=== PATIENT | female | born 1945 | race Caucasian/White ===

== ENCOUNTER → 2017-02-23 | Outpatient (CLI) | payer OTHER, BC ==
[~2017-02-23] MED LIST: ACCUNEB SO1.25 MG/1; ACETAMINOPHEN325 M1 PO; ACTOS 30 MG TAB30 MG PO; ADULT LOW DOSE81 MG PO; APAP500 PO; ARANESP25 MCG/0.4 SUBQ; ASPIRIN325 PO; ATIVAN0.5 MG PO; AZITHROMYCIN 2250 MG; BENADRYL25 MG PO; BISACODYL SUPP10 MG RECTAL; CEFDINIR300 MG PO; COLACE100 MG PO; DAKIN'S473 M1 TOP; DIABETA 5MG TABL5 MG PO; DIGOXIN125 MCG PO; EPOGEN20000 UNI2 SUBQ; FERRELCIT IV; FLUSH FLUSH; GLYBURIDE 2.52.5 M1 PO; HECTOROL2 MCG/1 ML IV; HEPARIN SO5000 UNIT2 SUBQ; HUMALOG100 UNIT/1 SUBQ; IBUPROFEN 400400 M1 PO; LANTUS100 UNIT/M SUBQ; LEVEMIR SUBQ; MIDODRINE HCL 55 M1 PO; MIRALAX17 GM PO; NEPHROCAPS SOFT1 CAP; NEPHROCAPS SOFT1 CAP PO; NORCO 5-325 TA1 EACH PO; NOVASOURCE REN237 ML PO; NOVOLOG100 UNIT/1 SUBQ; PANTOPRAZOLE SO40 M1 PO; PERCOCET PO; PHENERGAN 25 MG25 M1 PO; PHOSLO667 MG PO; PLAVIX 75 MG TA75 M1 PO; PRAVACHOL40 MG PO; PRAVACHOL80 MG PO; PREPARATION H C51 G1 RC; PREPARATION H26 GM RECTAL; PRILOSEC 20 MG20 MG PO; REGLAN 5 MG TAB5 M1 PO; REGLAN 5 MG TAB5 MG PO; REGRANEX; RENAL MULTIVIT1 EACH PO; RENAL PO; RENVELA800 MG PO; SENNA PO; SENSIPAR 30 MG30 M1 PO; TUMS PO; VAN500AD IV; VENOFER100 MG/51 IVPB; ZEMPLAR2 MCG/1 ML IV; ZINC PO; ZOCOR 20 MG TAB20 M1 PO; ZOFRAN2 MG/1 ML IV; ZOSYN 2.25 GR2.25 GM IV
== END ==
LOC: HYPER 06:56
DX: S90.421D Blister (nonthermal), right great toe, subsequent encounter (principal); S81.811D Laceration without foreign body, right lower leg, subsequent encounter; E11.40 Type 2 diabetes mellitus with diabetic neuropathy, unspecified; E11.51 Type 2 diabetes mellitus with diabetic peripheral angiopathy without gangrene; E11.22 Type 2 diabetes mellitus with diabetic chronic kidney disease; I12.0 Hypertensive chronic kidney disease with stage 5 chronic kidney disease or end stage renal disease; N18.6 End stage renal disease; G47.30 Sleep apnea, unspecified; E78.5 Hyperlipidemia, unspecified; K21.9 Gastro-esophageal reflux disease without esophagitis; E11.36 Type 2 diabetes mellitus with diabetic cataract; E21.3 Hyperparathyroidism, unspecified; M10.9 Gout, unspecified; E11.69 Type 2 diabetes mellitus with other specified complication; M86.9 Osteomyelitis, unspecified; I48.91 Unspecified atrial fibrillation; H91.90 Unspecified hearing loss, unspecified ear; F32.9 Major depressive disorder, single episode, unspecified; F41.9 Anxiety disorder, unspecified; Z99.2 Dependence on renal dialysis; Z89.519 Acquired absence of unspecified leg below knee; Z86.73 Personal history of transient ischemic attack (TIA), and cerebral infarction without residual deficits; X58.XXXD Exposure to other specified factors, subsequent encounter

== ENCOUNTER 2017-06-30 14:26 | Inpatient (IN) | payer OTHER, BC ==
[~2017-06-30] VITALS: Ht 157.5 cm; Wt 98.9 kg
--- NOTE | ~2017-06-30 | HC ---
[facility] [place] [address] CONSULTATION Name: LAURE CARLIN Kevin Room #: 215-P [place] IN M.R.#: [id number] Admission: 06/30/17 Attend Phys: Bhavesh Fields MD Discharge: 07/01/17 Date of : 43 Report #: [id number] THIS REPORT FOR: //name// CC: Bhavesh Fields [facility] [address] Aguilar DATE OF SERVICE: 07/01/2017 REASON FOR CONSULTATION: End-stage renal disease with volume overload. HISTORY OF PRESENT ILLNESS: This is a 72-year-old female who has end-stage renal disease and has been a chronic hemodialysis patient for many years. She normally dialyzes on a Qpnfpx-Eiclkoelz-Esypjw basis at the [facility] in [place], [place]. She states she received dialysis at her usual times this past week. She has had dyspnea that has been getting worse over that same time along with some cough. She has some mild sputum production. She is unaware of fevers, chills, or sweats. She thinks she might have had a "cold." With her dialysis, she has been getting down to her target weight as prescribed. Yesterday after dialysis, she was still having worsening respiratory symptoms, so she went to the [facility] and then was transferred here. Chest x-ray is reviewed and has shown some changes consistent with some mild pulmonary edema/diffuse infiltrates. She generally does not have any edema. Again, she states she is getting about 2 liters of ultrafiltration and getting down to her target weight. This is complicated somewhat by chronic hypotension. She is chronically on midodrine 3 times a day to keep her blood pressure up. The combination of the hypotension and need for volume removal are obviously leaving on a complicated problem as far as getting as much fluid off as needed. PAST MEDICAL HISTORY: Longstanding diabetes mellitus, eventually leading to end-stage renal disease. She has been on dialysis for many years. She dialyzes using left upper arm access. It has been working fairly well. She has longstanding diabetes mellitus. She has peripheral vascular disease. 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 She has previous diskitis in her back. She has had previous complication of diabetes beyond the nephropathy including retinopathy, peripheral neuropathy. She had a remote CVA in 1998. She has previous appendectomy. She has anemia of end-stage renal disease. MEDICATIONS: On admission include midodrine 5 mg t.i.d.; glyburide 2.5 mg, I believe it is b.i.d.; Actos 15 mg daily; pravastatin 80 mg daily; Renvela 800 mg 3 p.o. t.i.d. with meals as a phosphate binder; Aranesp with dialysis 25 mcg; insulin, on a sliding scale; pantoprazole 40 mg daily; Levemir 30 units at bedtime; aspirin 81 mg daily; metoclopramide 5 mg before meals and at bedtime; Nephrocaps 1 daily; Sensipar 30 mg daily; Plavix 75 mg daily. [facility] [address] [place] [address] CONSULTATION Name: LAURE CARLIN Room #: 215-P [place] IN M.R.#: [id number] Admission: 06/30/17 Attend Phys: Bhavesh Fields MD Discharge: 07/01/17 Date of : 43 Report #: [id number] ALLERGIES: LISTED TO MORPHINE. FAMILY HISTORY: Noncontributory. SOCIAL HISTORY: The patient is , lives in [place], [place]. She dialyzes in [place], [place]. She is a nonsmoker. REVIEW OF SYSTEMS: Positive for the increased dyspnea recently. She has mild cough. She is unaware of fevers, chills or sweats. Mild sputum production as noted above. She does not get edema when she gets volume overloaded. Has occasional nausea. No recent vomiting, no change in bowel habits. Her stump has been stable in the left leg. She wears oxygen chronically at home at 2 liters per nasal cannula, also wears some at dialysis. PHYSICAL EXAMINATION: GENERAL: A 72-year-old female, somewhat chronically ill appearing, no acute distress at this time. HEENT: Unremarkable. NECK: Shows no JVD or adenopathy. CHEST: Shows a few diffuse rales, a few wheezes, no dullness. HEART: Has regular rate and rhythm. ABDOMEN: Has active bowel sounds, is soft and nontender. No organomegaly or masses are palpable. EXTREMITIES: She has no peripheral edema, left below the knee amputation is noted. She has positive flow in her dialysis access in the left arm. I reviewed her chest x-ray, which is as described above and certainly could be involved with fluid, although it does not appear to be jose pulmonary edema. LABORATORY DATA: Sodium 138, potassium 3.8, chloride 99, bicarbonate 33, BUN 20, creatinine 3.5, glucose 105, AST 43, total bilirubin 1.1, calcium 9.6, total protein 7.5, albumin 3.5. White count 5.6, hemoglobin 11.9, hematocrit 37.1, platelets 76,000. ASSESSMENT: 1. End-stage renal disease. She dialyzed yesterday. With her dyspnea and chest x-ray changes, we will try to get some more volume off of ultrafiltration. This is a difficult problem in this patient due to her hypotension. We will give her some midodrine and do a dry ultrafiltration today. Again, she did receive her full dialysis yesterday. 2. Dyspnea with chest x-ray changes as noted above. She is chronically on oxygen. We will see how she responds to volume removal. 3. Longstanding diabetes mellitus. 4. Peripheral vascular disease, prior left qudmn-ryv-pfzx amputation. 5. Anemia, chronically on Aranesp. [address] [address] CONSULTATION Name: TESFAYELAURE Room #: 215-P [facility]#: [id number] Admission: 06/30/17 Attend Phys: Bhavesh Fields MD Discharge: 07/01/17 Date of : 43 Report #: [id number] PLAN: 1. We will get her midodrine 5 mg. 2. Dry ultrafiltration 2 liters over several hours. We will see how she responds. If improves, she could potentially get discharged to home and resume her normal outpatient dialysis in [place]. 3. Otherwise, we will check on her after she gets her dialysis and see how she is doing. <ELECTRONICALLY SIGNED> By: Sanjay Bronson MD 07/03/17 0739 1102 32 Sanjay Bronson MD /nt
[~2017-06-30 14:26] MED LIST changes: -APAP500 PO; +TYLENOL EXTRA500 MG PO
[2017-06-30 16:50] VITALS: BP 118/57
[2017-06-30 17:55] LABS: ABSOLUTE NEUTROPHILS 4.6 thou/uL (1.4-8.2); BASOPHILS 0.5 % (0.0-2.0); EOSINOPHILS 0.8 % (0.0-3.0); HEMATOCRIT 37.1 % (37.0-47.0); HEMOGLOBIN 11.9 gm/dL (12.0-15.0); LYMPHOCYTES 9.1 % (24.0-44.0); MCH 31.2 pg (26.0-34.0); MCV 97.5 fL (80.0-100.0); MONOCYTES 8.1 % (1.0-8.0); POLYS 81.5 % (36.0-66.0); RDW 15.4 % (10.5-14.5); WBC 5.6 thou/uL (4.0-11.0)
[2017-06-30 18:05] LABS: CALCIUM 9.6 mg/dL (8.5-10.1); CREATININE 3.5 mg/dL (0.6-1.0); POTASSIUM 3.8 mmol/L (3.5-5.1)
[2017-06-30 18:11] LABS: ALBUMIN 3.5 g/dL (3.4-5.0); TOTAL BILIRUBIN 1.1 mg/dL (<0.1-1.0); TOTAL PROTEIN 7.5 g/dL (6.4-8.2)
[2017-06-30] MEDS ORDERED: GLYBURIDE 2.52.5 MG PO (18:22)
[2017-06-30 18:23] LABS: LARGE PLATELETS SEVERAL
[2017-06-30 18:24] LABS: PLATELET COUNT 76 thou/uL (150-400)
[2017-06-30] MEDS ORDERED: PIOGLITAZONE15 MG (18:25)
[2017-06-30 18:38] LABS: TSH 1.428 uIU/mL (0.358-3.740)
[2017-06-30 19:47] VITALS: BP 115/63
[2017-07-01 04:49] VITALS: BP 94/42
[2017-07-01 07:45] VITALS: BP 113/56
[2017-07-01 11:10] VITALS: BP 114/55
[2017-07-01 15:35] VITALS: BP 103/44
[2017-07-01 17:20] VITALS: BP 103/44
[2017-07-05 01:10] LABS: ADENOVIRUS Negative (Negative); INFLUENZA A Negative (Negative); INFLUENZA B Negative (Negative); METAPNEUMOVIRUS Positive (Negative); PARAINFLUENZA 1 Negative (Negative); PARAINFLUENZA 2 Negative (Negative); PARAINFLUENZA 3 Negative (Negative); RHINOVIRUS Negative (Negative); RSV A Negative (Negative); RSV B Negative (Negative)
[2017-10-29] MEDS ORDERED: ERGOCALCIF50000 UNIT PO (08:23)
[2017-10-29] MEDS ORDERED: DIGOXIN125 MCG PO (08:23)
[2017-10-29] MEDS ORDERED: MIRALAX17 GM PO (08:23)
[2017-10-29] MEDS ORDERED: MELATONIN5 M1 PO (08:23)
[2017-10-29] MEDS ORDERED: LIDOPATCH1 EACH TRANSDERM (08:23)
[2017-10-29] MEDS ORDERED: NEPHROCAPS SOFT1 CAP PO (08:23)
[2017-10-29] MEDS ORDERED: CLARITIN10 MG PO (08:23)
[2017-10-29] MEDS ORDERED: SENNA8.6 MG PO (08:23)
== END 2017-07-01 19:52 | disposition home or self-care (01) | DRG 291 ==
LOC: 2N 14:26
PROVIDERS: Nurse Practitioner
PROC: 5A1D70Z Performance of Urinary Filtration, Intermittent, Less than 6 Hours Per Day (ICD-10-PCS; principal; 2017-07-01)
DX: I13.2 Hypertensive heart and chronic kidney disease with heart failure and with stage 5 chronic kidney disease, or end stage renal disease (principal); N18.6 End stage renal disease; I69.954 Hemiplegia and hemiparesis following unspecified cerebrovascular disease affecting left non-dominant side; E11.22 Type 2 diabetes mellitus with diabetic chronic kidney disease; I48.91 Unspecified atrial fibrillation; I95.9 Hypotension, unspecified; E11.319 Type 2 diabetes mellitus with unspecified diabetic retinopathy without macular edema; G56.02 Carpal tunnel syndrome, left upper limb; E11.649 Type 2 diabetes mellitus with hypoglycemia without coma; E11.42 Type 2 diabetes mellitus with diabetic polyneuropathy; E11.51 Type 2 diabetes mellitus with diabetic peripheral angiopathy without gangrene; D63.8 Anemia in other chronic diseases classified elsewhere; Z89.512 Acquired absence of left leg below knee; Z98.49 Cataract extraction status, unspecified eye; Z95.820 Peripheral vascular angioplasty status with implants and grafts; Z90.49 Acquired absence of other specified parts of digestive tract; Z88.6 Allergy status to analgesic agent; Z79.899 Other long term (current) drug therapy; Z79.82 Long term (current) use of aspirin
CPT/HCPCS: 10797; 32100

== ENCOUNTER 2017-10-15 06:09 | Inpatient (IN) | payer OTHER, BC ==
[~2017-10-15] VITALS: Ht 157.5 cm; Wt 96.8 kg
--- NOTE | ~2017-10-15 | PATH ---
[facility] [address] [place] [address] PATHOLOGY RPT PROCEDURE Name: HALEY BUSTAMANTE Room #: 457-P [facility] IN .R.#: [id number] Admission: 10/15/17 Date of : 43 Discharge: 10/20/17 Report #: [id number] Path Case #: [id number] [facility] Accession Number: [id number] . 01 Material submitted: . GALLBLADDER . 01 Clinical history: . Cholecystitis. . 02 Diagnosis: Gallbladder, cholecystectomy: - Mild chronic cholecystitis. - Cholelithiasis. (IUV:db; 10/20/2017) LBQ/10/20/2017 . 02 Electronically signed: . Benita Jara MD, Pathologist NPI- [id number] . 01 Gross description: . Received in formalin labeled "Haley Bustamante gallbladder" is a previously opened cholecystectomy specimen which measures 9.5 x 4.2 x 1.3 cm. The serosa is robles-yellow and smooth. The mucosal surface is yellow-pink and velvety. The wall thickness measures 0.2 cm. No polyps or masses are identified. Multiple minute friable black calculi are identified which measure in aggregate 5.0 x 1.8 x 0.2 cm and range from 0.1-0.3 cm in greatest dimension. Industrial Production Manager sections of the body and fundus as well as the cystic duct margin (inked black) are submitted in cassette A1. ([facility]; 10/19/2017) SY/SYC . 02 Pathologist provided ICD-10: K80.10 . 02 CPT . 808949 Performed at: [address], [place] [id number] MD Royce Durham MD Phone: [phone] Performed at: [address] [id number] MD Benita Jara MD Phone: [phone]
--- NOTE | ~2017-10-15 | O ---
[facility] [place] [address] OPERATIVE REPORT Name: LAURE CARLIN Room #: 457-P ADM IN M.R.#: [id number] Admission: 10/15/17 Attend Phys: Gabe Carlson MD Discharge: Date of : 43 Report #: [id number] THIS REPORT FOR: //name// CC: José Miguel Aguilar DATE OF SERVICE: 10/19/2017 PREOPERATIVE DIAGNOSES: 1. Chronic cholecystitis. 2. Cholelithiasis. POSTOPERATIVE DIAGNOSES: 1. Chronic cholecystitis. 2. Cholelithiasis. PROCEDURE: Laparoscopic cholecystectomy with intraoperative cholangiogram. SURGEON: Louise Barker M.D. MARBLE COPER: ATA Garcia ANESTHESIA: General endotracheal anesthesia. ESTIMATED BLOOD LOSS: Minimal (less than 5 mL). COMPLICATIONS: None appreciated. SPECIMENS: Gallbladder to pathology. INDICATIONS: The patient is a 72-year-old obese female who is on dialysis for end-stage renal disease as well as having multiple other medical issues, who presented with intermittent abdominal pain, nausea and vomiting. The patient was found on ultrasound to have gallbladder wall thickening and cholelithiasis with mild transaminitis; however, this has improved over her hospital course. In addition, she did have a transient elevation of her lipase consistent with a low-grade pancreatitis. The patient has been off aspirin and Plavix for 4 days and received dialysis yesterday and as such indication is for definitive surgical management in the form of laparoscopic cholecystectomy with cholangiogram today. Cholangiogram showed no evidence of filling defects. DESCRIPTION OF PROCEDURE: After explaining the risks, benefits and alternatives of the procedure with the patient in detail in the preoperative holding area and obtaining written consent, the patient was brought to the operating room and placed supine on the operating room table. After conducting a thorough timeout [address] [address] OPERATIVE REPORT Name: LAURE CARLIN Room #: 457-P [facility] IN [facility]#: [id number] Admission: 10/15/17 Attend Phys: Gabe Carlson MD Discharge: Date of : 44 Report #: [id number] procedure verifying correct patient and procedure, the patient was given general endotracheal anesthesia. Once adequate anesthesia was obtained, her SCDs were hooked up to pneumatic compression device. She was given a preoperative dose of antibiotics in line with the SCIP protocol. The patient's abdomen was prepped and draped in a standard surgical sterile fashion. A 5 mL of 0.5% Marcaine with epinephrine was used to anesthetize the skin in the supraumbilical location. A #15 bladed scalpel was used to create a 1 cm vertical incision site at this location following her prior incision site. An 11 mm Visiport was placed over 0-degree 10-mm laparoscope and was introduced through this incision site. Once intra-abdominal placement was verified visually, the obturator for the trocar and laparoscope were both removed and the abdomen was insufflated to 15 mmHg using carbon dioxide gas. The laparoscope was changed to a 10-mm 30-degree laparoscope, which was reintroduced through this trocar. The entire abdomen was evaluated to ensure no injury upon entry. The patient was now placed in reverse Trendelenburg with right side elevated and I proceeded to place three additional 5 mm ports in the upper abdomen. One was placed in the subxiphoid location and two were placed along the patient's right subcostal margin. All three additional 5 mm ports were placed under direct vision after anesthetizing the skin at each location with 5 mL of 0.5% Marcaine with epinephrine and I had created small skin nicks using #15 bladed scalpel. Using the inferolateral most port along the patient's right flank, the fundus of the gallbladder was grasped and retracted cephalad. Careful tedious dissection was undertaken down around the cholecysto-cystic junction using a combination of Harmonic scalpel and Maryland dissector. Once I had attained a critical view, namely the cystic duct emanating from the infundibulum of the gallbladder and coursing to the common bile duct as well as the cystic artery running the surface of the gallbladder, and I had created a window behind each, I transected the cystic artery nearest to the gallbladder side using Harmonic scalpel for hemostasis. A single clip was then placed along the cystic duct nearest to the gallbladder side and a small ductotomy was made just distal to this clip. This ductotomy was cannulated using the taut cholangiocatheter setup and an intraoperative cholangiogram was obtained. We had prompt opacification of the cystic duct with both intra and extrahepatic bile ducts becoming opacified. There was antegrade flow of contrast in the duodenum with no evidence of filling defects or obstruction. The cholangiocatheter setup was removed. Three clips were placed along the cystic duct nearest to the common bile duct side and it was transected above these clips using Harmonic scalpel to help seal the end of the duct close. Further retraction at the infundibulum of the gallbladder in cephalad direction allowed me to elevate the gallbladder off the liver bed using Harmonic scalpel for complete hemostasis. Once detached, the laparoscope was removed, changed to a 5-mm 30-degree laparoscope, which was reintroduced through the right midclavicular 5 mm port. The EndoCatch bag was placed in supraumbilical trocar and the specimen was placed within it under direct vision. The pursestring suture was drawn and specimen was removed from the abdomen under direct vision with ease. Final evaluation of the gallbladder fossa showed complete hemostasis and the clips were seated nicely on the cystic duct stump remnant. There was no [facility] [address] [place] [address] OPERATIVE REPORT Name: LAURE CARLIN Room #: 457-P [facility]#: [id number] Admission: 10/15/17 Attend Phys: Gabe Carlson MD Discharge: Date of : 43 Report #: [id number] spillage or bleeding. I now closed the supraumbilical fascial incision using 0 PDS suture on a Eduin-Kaylie suture passer device under direct vision. This was tied down under direct vision to ensure I did not catch a loop of bowel or omentum in the suture repair. The abdomen was fully desufflated. All remaining trocars were removed under direct vision. A 4-0 Monocryl was used in a standard subcuticular fashion for all skin incisions and Dermabond glue was applied to all skin wounds. At the end of the procedure all instrument, needle and sponge counts were correct. The patient tolerated the procedure without incident, was awakened in the operating room and transitioned to the recovery room in stable condition with no apparent complications. The gallbladder was opened on the back table showing significant findings of gallbladder wall thickening and cholesterolosis consistent with chronic cholecystitis in addition to cholelithiasis, but no other pathologic findings were identified. <ELECTRONICALLY SIGNED> By: Louise Barker MD, FACS 10/19/17 1327 1250 1308 Louise Barker MD, FACS /nt
--- NOTE | ~2017-10-15 | HC ---
[facility] [place] [address] CONSULTATION Name: LAURE CARLIN Room #: 364-P ADM IN M.R.#: [id number] Admission: 10/15/17 Attend Phys: Blayne Terry MD Discharge: Date of : 43 Report #: [id number] THIS REPORT FOR: //name// CC: José Miguel Terry Dawson Aguilar DATE OF SERVICE: 10/15/2017 GENERAL SURGERY CONSULTATION REFERRING PROVIDER: Blayne Terry MD REASON FOR CONSULT: Abdominal pain. HISTORY OF PRESENT ILLNESS: The patient is a 72-year-old female with multiple medical problems including end-stage renal disease, on dialysis; diabetes mellitus, peripheral neuropathy, chronic pain, and multiple other medical issues as delineated below, who was in her usual state of health until she presented to the [facility] reporting right-sided abdominal pain and nausea. Reportedly, the patient underwent radiographic evaluation with concern for gallstone pancreatitis. As due to the patient's multiple medical issues, she was transferred here to [facility] where I am asked to evaluate in the surgical standpoint. PAST MEDICAL AND SURGICAL HISTORY: Extensive and includes end-stage renal disease, on hemodialysis; chronic hypotension, diabetes mellitus, peripheral neuropathy, gastroparesis, osteomyelitis, status post left BKA, diabetic retinopathy, left AV fistula, prior appendectomy. She has had a prior vertebral body staph infection. She has had a stroke, ovarian cyst and appendectomy. MEDICATIONS: Midodrine, Plavix, digoxin, aspirin, Sevelamer, glipizide, pioglitazone. ALLERGIES: MORPHINE. FAMILY HISTORY: Reviewed and noncontributory. SOCIAL HISTORY: The patient states she does not use tobacco, alcohol or illicit drugs. REVIEW OF SYSTEMS: GENERAL: The patient denies nocturnal fevers or chills. HEENT: No change in vision, change in hearing. NECK: No swelling or difficulty swallowing. HEART: No chest pain or palpitations. [facility] [address] [place] [address] CONSULTATION Name: LAURE CARLIN Kevin Room #: 364-P [facility]#: [id number] Admission: 10/15/17 Attend Phys: Blayne Terry MD Discharge: Date of : 43 Report #: [id number] LUNGS: No cough or shortness of breath. ABDOMEN: Transient abdominal pain with nausea, but no vomiting. GENITOURINARY: No dysuria or hematuria. ENDOCRINE: No polyuria or polydipsia. HEMATOLOGIC: No history of bleeding or easy bruising. EXTREMITIES: No history of weakness or limited range of motion. NEUROLOGIC: No history of syncope or near syncopal episodes. PSYCHIATRIC: No history of anxiety or depression. SKIN AND INTEGUMENT: No recent history of abnormal lesions or moles. PHYSICAL EXAMINATION: VITAL SIGNS: Temperature 97.9, pulse 57, respirations 18, blood pressure 128/57. She is 5 feet 2 inches tall and weight is 223 pounds. GENERAL: She is alert, in no acute distress. HEENT: Normocephalic, atraumatic. Pupils equal, round, reactive to light. NECK: Supple, without lymphadenopathy. Trachea midline. HEART: Regular rate and rhythm. LUNGS: Clear to auscultation bilaterally. GASTROINTESTINAL: Abdomen is obese, soft, nondistended, very minimal tenderness to palpation in the epigastrium, but no guarding, rebound or peritoneal signs or symptoms. GENITOURINARY: Normal external female genitalia. EXTREMITIES: No clubbing, cyanosis or edema. Well-healed left BKA stump. NEUROLOGIC: Cranial nerves 2-12 are grossly intact. PSYCHIATRIC: Normal mood and affect. SKIN AND INTEGUMENT: No current abnormal lesions or moles. LABORATORY AND X-RAY DATA: CBC was not performed here, although it was reportedly normal at the outside hospital. Her creatinine here 6.9. Liver function enzymes are normal. Lipase is slightly elevated at 566. INR of 1.0, lactic acid was 3.0, which appropriately came down to 1.5 with hydration. Her BNP is markedly elevated at 7039. Chest x-ray shows cardiomegaly. Ultrasound of the abdomen as per HPI shows cholelithiasis and sludge with gallbladder distention and very mild wall thickening, but no ductal dilatation and she has a negative Benedict sign sonographically. I am unable to find records from the outside hospital at this time. ASSESSMENT AND PLAN: A 72-year-old obese female with end-stage renal disease, on hemodialysis as well as likely low grade gallstone pancreatitis with possible early acute cholecystitis, although this can be misleading in patients with end-stage renal disease as they develop gallbladder wall thickening as a result of their overall fluid status. The patient's BNP is elevated as well. At this time, I recommend continuation of all current medical cares. We will continue with clear liquid diet sparingly for comfort at this time and await records from the outside hospital as well for further review. Ultimately, this is most likely low grade gallstone pancreatitis and she will likely necessitate [address] [address] CONSULTATION Name: LAURE CARLIN Room #: 364-P ADM IN M.R.#: [id number] Admission: 10/15/17 Attend Phys: Blayne Terry MD Discharge: Date of : 43 Report #: [id number] laparoscopic cholecystectomy at some point in the near future. As it is not a true emergency at this point, we will hold her Plavix and aspirin and proceed forward in the next few days for definitive surgical management. All the above was discussed with the patient and she agrees to proceed as outlined. I sincerely appreciate this consult. I will follow along and leave any further recommendations in the patient's chart as appropriate. <ELECTRONICALLY SIGNED> By: Louise Barker MD, FACS 10/15/17 2344 [id number] Louise Barker MD, FACS /nt
--- NOTE | ~2017-10-15 | HC ---
[facility] [place] [address] CONSULTATION Name: LAURE CARLIN Kevin Room #: 364-P ADM IN M.R.#: [id number] Admission: 10/15/17 Attend Phys: Blayne Terry MD Discharge: Date of : 43 Report #: [id number] THIS REPORT FOR: //name// CC: José Miguel Aguilar DATE OF SERVICE: 10/15/2017 REASON FOR PRESENTATION: She was transferred from another facility for an acute abdominal pain. REASON FOR CONSULTATION: End-stage renal disease. HISTORY OF PRESENT ILLNESS: This is a very well known patient to me. She has an end-stage renal disease, maintained on dialysis every Monday, Monday and Monday. She dialyzes down in [place]. Her end-stage renal disease was due to longstanding diabetes mellitus. She had all sorts of complications related to the diabetes mellitus including left lower extremity amputation. She is also chronically hypotensive. She is utilizing a left arm dialysis access. She presented to [facility] reporting some right-sided abdominal pain associated with some nausea, but no vomiting. She tells me that she had a scan there that showed gallbladder stones. I am not able to localize any of those records. She denies any fever or chills, no previous similar episodes. No reported shortness of breath. No pleuritic chest pain. When the patient presented to our facility, she had an ultrasound done. The ultrasound showed a possible sludge with gallbladder stones and mild gallbladder distention. Surgical evaluation is pending. I was consulted to manage her end-stage renal disease. PAST MEDICAL HISTORY: Extensive and include the followin. End-stage renal disease, maintained on hemodialysis every Monday, Monday and Monday in [facility]. 2. Hypotension. 3. Diabetes mellitus. 4. Peripheral neuropathy. 5. Gastroparesis. 6. Status post left BKA. 7. Osteomyelitis. 8. Diabetic retinopathy. 9. Left AV fistula. 10. Appendectomy. 11. Remote history of vertebral body staph infection. 12. CVA. 13. Ovarian cysts. 14. Appendectomy. [facility] [address] [place] [address] CONSULTATION Name: LAURE CARLIN Kevin Room #: 364-P [facility] IN [facility].#: [id number] Admission: 10/15/17 Attend Phys: Blayne Terry MD Discharge: Date of : 43 Report #: [id number] FAMILY HISTORY: Positive for end-stage renal disease, diabetes mellitus. ALLERGIES: MORPHINE. REVIEW OF SYSTEMS: GENERAL: No fever or chills. CARDIOVASCULAR: No chest pain or palpitation. PULMONARY: No cough or hemoptysis. GASTROINTESTINAL: As per the history of present illness. GENITOURINARY: She is anuric. MEDICATIONS: 1. Midodrine. 2. Plavix. 3. Digoxin. 4. Aspirin. 5. Sevelamer. 6. Glipizide. 7. Pioglitazone. PHYSICAL EXAMINATION: GENERAL: She is alert, oriented. VITAL SIGNS: Blood pressure is 100/52. HEAD AND NECK: No jugular venous distention. CHEST: Minimal crackles. CARDIOVASCULAR: Distant. No rub detected. ABDOMEN: Soft. Slight tenderness in the right upper quadrant area. LABORATORY VALUES: Reviewed. Lactate is mildly elevated at 566. BUN is 59, ALT is 29, bilirubin is 0.5. IMAGING: Ultrasound reviewed. Outside records, I am not able to localize those records. It is mentioned. ASSESSMENT, IMPRESSION AND PLAN: 1. End-stage renal disease. 2. Outside records suggestive of acute calculous cholecystitis; however, ultrasound with no evidence of cholecystitis in our facility. 3. Elevated lactate. 4. Atrial fibrillation. 5. End-stage renal disease, maintained on dialysis and Monday. 6. Diabetes mellitus. 7. Chronic hypertension. 8. From the renal perspective, we will aim for usual dialysis tomorrow. 9. Resume her midodrine. [address] [address] CONSULTATION Name: LAURE CARLIN Room #: 364-P ADM IN [facility]#: [id number] Admission: 10/15/17 Attend Phys: Blayne Terry MD Discharge: Date of : 43 Report #: [id number] 8. She was started on antibiotics per admitting team. 9. Control of atrial fibrillation. 10. Holding blood sugar medications. 11. Surgical consultations. 12. Discontinue IV fluid. 13. We will try to coordinate care between her dialysis and potential surgery if the patient opted to proceed with the surgery if the surgeons are convinced that this is an acute cholecystitis. <ELECTRONICALLY SIGNED> By: Ha Moreno MD 10/16/17633 48 28 Ha Moreno MD /nt
--- NOTE | ~2017-10-15 | HC ---
[facility] [place] [address] CONSULTATION Name: LAURE CARLIN Kevin Room #: 457-P [facility] IN M.R.#: [id number] Admission: 10/15/17 Attend Phys: Gabe Carlson MD Discharge: Date of : 44 Report #: [id number] THIS REPORT FOR: //name// CC: José Miguel Aguilar DATE OF SERVICE: 10/19/2017 HISTORY OF PRESENT ILLNESS: The patient is a 72-year-old female with history of end-stage renal disease, on hemodialysis, prior left below knee amputation for which she utilizes a prosthesis. History of a prior CVA with residual left hemiparesis, admitted with abdominal discomfort. She was noted to have an acute cholecystitis with gallstone pancreatitis. She has undergone laparoscopic cholecystectomy with surgical intervention earlier today. We are consulted to see her regarding rehabilitation issues. PAST MEDICAL HISTORY: As noted above. She is a dialysis patient, had the prior left below knee amputation. She has exogenous obesity. Diabetic gastroparesis, GERD, hypertension. She had the prior CVA and has residual left-sided weakness, upper extremity and lower extremity. She also has decreased sensation, right lower extremity with diabetic neuropathy. MEDICATIONS: Please see the full medication listing, this includes vitamins, herbals, and supplements. ALLERGIES: INCLUDE MORPHINE. SOCIAL HISTORY: She lives in a house with her . No steps. There is a ramp. She used her front-wheeled walker short distances with her prosthesis and otherwise used a scooter. REVIEW OF SYSTEMS: No current complaints of chest pain, shortness of breath, abdominal discomfort. She has the decreased sensation of her lower extremity as noted above. She has decreased strength of the left upper extremity as well as some involving the left lower extremity from the prior stroke. PHYSICAL EXAMINATION: GENERAL: She is a pleasant 72-year-old obese white female in no obvious distress. VITAL SIGNS: Last recorded temperature is 98.1, pulse 75, respirations 22, blood pressure 124/45. She is alert, pleasant. HEENT: Appeared to be benign. NEUROLOGIC: Cranial nerves are grossly intact. She has functional range of motion of the right upper extremity without focal weakness. Left upper extremity strength is a grade 4-/5. She tends to have some fisting of the left [address] [address] CONSULTATION Name: FELICIA CARLINSHUKRI Brown Room #: 457-P [facility] IN [facility]#: [id number] Admission: 10/15/17 Attend Phys: Gabe Carlson MD Discharge: Date of : 44 Report #: [id number] hand and she has some difficulty with extending her fingers fully. ABDOMEN: As far as her abdomen, she has the laparoscopic small incisions that are noted. EXTREMITIES: Left lower extremity reveals the below knee amputation with the stump without erythema, no edema, reasonable range of motion of the knee. Right lower extremity, she has definite decreased sensation below the knee. Strength is probably a grade 4-/5. Left lower extremity strength is grade 3+ to 4-/5. ASSESSMENT: A 72-year-old female with the following problem list: 1. Cholecystitis with cholelithiasis, status post laparoscopic cholecystectomy, 10/19/2017. 2. Left below knee amputation. 3. 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 4. Diabetic peripheral neuropathy. 5. End-stage renal disease, on hemodialysis. 6. Premorbid, short distance front-wheeled walker versus a scooter for mobility. 7. Hypertension. 8. Diabetic gastropathy. 9. Cardiomyopathy. 10. Gastroesophageal reflux disease. PLAN: We will see how the patient tolerates her therapies. She may be a candidate for a short acute in-hospital inpatient rehabilitation stay. We will be glad to follow along with you regarding her rehab therapy needs. <ELECTRONICALLY SIGNED> By: Deotne Roldan MD 10/20/17 1228 1445 1936 Deonte Roldan MD /nt
[~2017-10-15 06:09] MED LIST changes: +APAP500 PO; +GLYBURIDE 2.52.5 MG PO; +PIOGLITAZONE15 MG; -TYLENOL EXTRA500 MG PO
[2017-10-15 08:59] VITALS: BP 128/45
[2017-10-15] MEDS ORDERED: GLUCOTROL5 MG PO (10:47)
[2017-10-15] MEDS ORDERED: PIOGLITAZONE15 MG (10:49)
[2017-10-15 12:10] VITALS: BP 100/52
[2017-10-15 12:58] LABS: PROTIME 10.6 Seconds (9.3-11.4)
[2017-10-15 13:05] LABS: ALBUMIN 3.6 g/dL (3.4-5.0); ANION GAP 8 mmol/L (7-16); BUN 59 mg/dL (7-18); CALCIUM 9.3 mg/dL (8.5-10.1); CHLORIDE 101 mmol/L (98-107); CO2 29 mmol/L (21-32); CREATININE 6.9 mg/dL (0.6-1.0); GLUCOSE 81 mg/dL (74-106); MAGNESIUM 2.3 mg/dL (1.8-2.4); POTASSIUM 5.4 mmol/L (3.5-5.1); SGOT 20 U/L (15-37); SGPT 29 U/L (30-65); SODIUM 138 mmol/L (136-145); TOTAL BILIRUBIN 0.5 mg/dL (<0.1-1.0); TOTAL PROTEIN 7.4 g/dL (6.4-8.2); TROPONIN-I < 0.04 ng/mL (<0.06)
[2017-10-15 19:15] VITALS: BP 128/57
[2017-10-16 04:45] VITALS: BP 156/51
[2017-10-16 05:38] LABS: HEMATOCRIT 39.2 % (37.0-47.0); HEMOGLOBIN 12.5 gm/dL (12.0-15.0); MCH 31.6 pg (26.0-34.0); MCHC 31.9 g/dL (28.0-37.0); MCV 99.1 fL (80.0-100.0); RBC 3.96 mil/uL (4.20-5.00); RDW 15.6 % (10.5-14.5); WBC 6.3 thou/uL (4.0-11.0)
[2017-10-16 05:59] LABS: ALBUMIN 3.2 g/dL (3.4-5.0); CALCIUM 8.9 mg/dL (8.5-10.1); CREATININE 7.7 mg/dL (0.6-1.0); PHOSPHORUS 5.8 mg/dL (2.5-4.9)
[2017-10-16 06:10] LABS: POTASSIUM 6.6 mmol/L (3.5-5.1)
[2017-10-16 07:30] VITALS: BP 156/51
[2017-10-16 12:30] VITALS: BP 97/36
[2017-10-16 16:12] VITALS: BP 128/91
[2017-10-16 20:05] VITALS: BP 125/55
[2017-10-17 04:12] VITALS: BP 136/64
[2017-10-17 06:11] LABS: ABSOLUTE NEUTROPHILS 4.5 thou/uL (1.4-8.2); BASOPHILS 1.2 % (0.0-2.0); HEMATOCRIT 41.1 % (37.0-47.0); HEMOGLOBIN 13.2 gm/dL (12.0-15.0); LYMPHOCYTES 18.9 % (24.0-44.0); MCH 31.7 pg (26.0-34.0); MCHC 32.2 g/dL (28.0-37.0); MCV 98.2 fL (80.0-100.0); PLATELET COUNT 107 thou/uL (150-400); POLYS 64.9 % (36.0-66.0); RBC 4.18 mil/uL (4.20-5.00); RDW 14.8 % (10.5-14.5)
[2017-10-17 06:27] LABS: ALBUMIN 3.4 g/dL (3.4-5.0); POTASSIUM 4.7 mmol/L (3.5-5.1); TOTAL BILIRUBIN 0.7 mg/dL (<0.1-1.0); TOTAL PROTEIN 6.8 g/dL (6.4-8.2)
[2017-10-17 06:32] LABS: CREATININE 4.9 mg/dL (0.6-1.0)
[2017-10-17 07:14] VITALS: BP 139/58
[2017-10-17 15:45] VITALS: BP 124/52
[2017-10-17 19:41] VITALS: BP 112/65
[2017-10-18 03:09] VITALS: BP 92/41
[2017-10-18 04:17] LABS: ALBUMIN 3.1 g/dL (3.4-5.0); CALCIUM 8.8 mg/dL (8.5-10.1); PHOSPHORUS 5.9 mg/dL (2.5-4.9); POTASSIUM 5.2 mmol/L (3.5-5.1)
[2017-10-18 04:18] LABS: CREATININE 6.3 mg/dL (0.6-1.0)
[2017-10-18 08:00] VITALS: BP 127/46
[2017-10-18 18:18] VITALS: BP 113/40
[2017-10-18 19:25] VITALS: BP 107/50
[2017-10-19] VITALS (10 sets, daily range): BP systolic 108–152; BP diastolic 39–84
[2017-10-19 05:27] LABS: HEMATOCRIT 38.2 % (37.0-47.0); HEMOGLOBIN 12.2 gm/dL (12.0-15.0); MCH 31.5 pg (26.0-34.0); MCHC 32.1 g/dL (28.0-37.0); MCV 98.1 fL (80.0-100.0); RBC 3.89 mil/uL (4.20-5.00); RDW 14.5 % (10.5-14.5); WBC 4.5 thou/uL (4.0-11.0)
[2017-10-19 05:40] LABS: CALCIUM 8.7 mg/dL (8.5-10.1); POTASSIUM 4.5 mmol/L (3.5-5.1); TOTAL BILIRUBIN 0.7 mg/dL (<0.1-1.0); TOTAL PROTEIN 6.6 g/dL (6.4-8.2)
[2017-10-20 03:34] VITALS: BP 141/59
[2017-10-20 05:23] LABS: ABSOLUTE NEUTROPHILS 3.9 thou/uL (1.4-8.2); BASOPHILS 0.4 % (0.0-2.0); EOSINOPHILS 0.2 % (0.0-3.0); LYMPHOCYTES 13.1 % (24.0-44.0); MCH 31.8 pg (26.0-34.0); MCHC 32.4 g/dL (28.0-37.0); MCV 98.3 fL (80.0-100.0); PLATELET COUNT 80 thou/uL (150-400); POLYS 76.3 % (36.0-66.0); RBC 4.07 mil/uL (4.20-5.00); RDW 15.1 % (10.5-14.5); WBC 5.1 thou/uL (4.0-11.0)
[2017-10-20 05:35] LABS: CALCIUM 9.3 mg/dL (8.5-10.1)
[2017-10-20 05:44] LABS: POTASSIUM 6.2 mmol/L (3.5-5.1)
[2017-10-20 05:45] LABS: CREATININE 5.8 mg/dL (0.6-1.0)
[2017-10-20 08:20] VITALS: BP 149/61
[2017-10-20] MEDS ORDERED: HEPARIN SO5000 UNIT/ SUBQ (12:02)
[2017-10-20] MEDS ORDERED: SIMETHICON CHEW80 M1 PO (12:03)
[2017-10-20] MEDS ORDERED: MIRALAX17 GM PO (12:03)
[2017-10-20] MEDS ORDERED: HYDROCODON-ACE1 EAC7 PO (12:03)
== END 2017-10-20 17:50 | DRG 853 ==
LOC: 3W 06:09 → 4W 08:39
PROVIDERS: Hospitalist; Internal Medicine Nephrology; Surgery
DX: A41.9 Sepsis, unspecified organism (principal); K85.90 Acute pancreatitis without necrosis or infection, unspecified; N18.6 End stage renal disease; K80.00 Calculus of gallbladder with acute cholecystitis without obstruction; I69.954 Hemiplegia and hemiparesis following unspecified cerebrovascular disease affecting left non-dominant side; I42.9 Cardiomyopathy, unspecified; J96.10 Chronic respiratory failure, unspecified whether with hypoxia or hypercapnia; I50.20 Unspecified systolic (congestive) heart failure; I13.2 Hypertensive heart and chronic kidney disease with heart failure and with stage 5 chronic kidney disease, or end stage renal disease; E11.22 Type 2 diabetes mellitus with diabetic chronic kidney disease; E11.42 Type 2 diabetes mellitus with diabetic polyneuropathy; E11.319 Type 2 diabetes mellitus with unspecified diabetic retinopathy without macular edema; I48.91 Unspecified atrial fibrillation; E66.09 Other obesity due to excess calories; E11.43 Type 2 diabetes mellitus with diabetic autonomic (poly)neuropathy; K31.84 Gastroparesis; K21.9 Gastro-esophageal reflux disease without esophagitis; I95.9 Hypotension, unspecified; E87.5 Hyperkalemia; E11.65 Type 2 diabetes mellitus with hyperglycemia; F41.9 Anxiety disorder, unspecified; G47.33 Obstructive sleep apnea (adult) (pediatric); Z89.512 Acquired absence of left leg below knee; Z90.49 Acquired absence of other specified parts of digestive tract; Z83.3 Family history of diabetes mellitus; Z84.1 Family history of disorders of kidney and ureter; Z88.6 Allergy status to analgesic agent; Z68.39 Body mass index [BMI] 39.0-39.9, adult; Z98.49 Cataract extraction status, unspecified eye; Z99.2 Dependence on renal dialysis
CPT/HCPCS: 10045; 10779; 32100; 50010; 50101; 50249; 50411; 50555; 50558; 50962; 51975; 52265; 53307; 54022; 54118; 55245; 55317; 56462; 56525; 56526; 62110; 62900; 70005

== ENCOUNTER 2017-11-23 17:47 | Inpatient (IN) | payer OTHER, BC ==
[~2017-11-23] VITALS: Ht 157.5 cm; Wt 89.3 kg
--- NOTE | ~2017-11-23 | PATH ---
[facility] [address] [place] [address] PATHOLOGY RPT PROCEDURE Name: TESFAYEHALEY Room #: 354-P DIS IN M.R.#: [id number] Admission: 11/23/17 Date of : 43 Discharge: 11/30/17 Report #: [id number] Path Case #: [id number] [facility] Accession Number: [id number] . 01 Material submitted: . LEFT SMALL FINGER . 01 Clinical history: . Osteomyelitis left hand . 02 Diagnosis: "Left small finger", amputation: - Skin and subcutaneous tissue with acute and chronic inflammation, necrosis and pseudoepitheliomatous hyperplasia. - Decalcified bone with extensive acute osteomyelitis. (CLW/db; 11/28/2017) LBQ/11/28/2017 . 02 Electronically signed: . Ladonna Orozco MD, Pathologist NPI- [id number] . 01 Gross description: . The specimen is received in formalin, labeled "Haley Bustamante, left small finger". Received is an amputated digit measuring 11.8 x 1.9 x 1.6 cm in greatest dimensions. The bone margin is blunt in appearance, consistent with transection. The soft tissue margin is pale robles to dusky gomez-robles and slightly necrotic in appearance. The bone and soft tissue margins are inked black. The nail is present displaying a pale robles and grossly unremarkable appearance. The epidermal surface is pale robles and slightly flaky to sloughing in appearance. A full-length longitudinal cross-section is submitted in cassettes A1 through A5, from proximal to distal aspects, following decalcification. (CAA; 11/27/2017) QAC/QAC . 02 Pathologist provided ICD-10: M86.142, L08.9 . 02 CPT . 551084, 477663 Performed at: [address] [id number] MD Royce Durham MD Phone: [phone] Performed at: [address] [address] PATHOLOGY RPT PROCEDURE Name: FELICIA BUSTAMANTESHUKRI Brown Room #: 354-P DIS IN M.R.#: [id number] Admission: 11/23/17 Date of : 43 Discharge: 11/30/17 Report #: [id number] Path Case #: [id number] [address] [place] [address], [place], [place] [id number] MD Bentia Jara MD Phone: [phone]
--- NOTE | ~2017-11-23 | HC ---
[facility] [place] [address] CONSULTATION Name: TESFAYELAURE J Room #: 354-P ADM IN M.R.#: [id number] Admission: 11/23/17 Attend Phys: Blayne Terry MD Discharge: Date of : 43 Report #: [id number] THIS REPORT FOR: //name// CC: Blayne Aguilar REASON FOR CONSULTATION: End-stage renal disease. REASON FOR PRESENTATION: Left hand pain and what seems to be cellulitis. HISTORY OF PRESENT ILLNESS: This is a very well-known patient to me. She has an end-stage renal disease due to long-term diabetes mellitus and hypertension. She has suffered from all complications related to diabetes mellitus, including peripheral arterial disease and ended up with an amputation of the lower extremity. She presented to the hospital after visiting with [facility] for a wound on her left hand. She usually refuses wound care; however, in the last few days, this has been getting worse and is associated with what she describes as yellow discharge, redness, erythema around the wound. She was told that she will need to see an Infectious Disease doctor, wound care. Thus transferred to [facility] for further evaluation and management. I am being consulted to manage her end-stage renal disease. PAST MEDICAL HISTORY: 1. End-stage renal disease, maintained on hemodialysis every Monday, Monday and Monday. 2. Recurrent pulmonary edema. 3. Peripheral vascular disease. 4. Left lower extremity below-knee amputation. 5. Diskitis. 6. Diabetes mellitus with all of its complications. 7. Appendectomy. 8. Chronic hypotension. 9. Left AV fistula. 10. CVA. 11. Ovarian cyst. FAMILY HISTORY: Very significant for diabetes mellitus and kidney disease. ALLERGIES: MORPHINE. MEDICATIONS: Currently, the patient is maintained on the followin. Augmentin. 2. Midodrine. 3. Plavix. 4. Digoxin. 5. Aspirin. 6. Lorazepam. [address] [address] CONSULTATION Name: LAURE CARLIN Kevin Room #: 354-P [facility] IN [facility].#: [id number] Admission: 11/23/17 Attend Phys: Blayne Terry MD Discharge: Date of : 44 Report #: [id number] 7. Renvela. 8. Pioglitazone. REVIEW OF SYSTEMS: GENERAL: No fever or chills. CARDIOVASCULAR: Occasional shortness of breath. PULMONARY: Shortness of breath, but no cough or hemoptysis. GASTROINTESTINAL: No nausea or vomiting. SKIN: As described above, left hand lesion. MUSCULOSKELETAL: As described in the history of present illness. PHYSICAL EXAMINATION: VITAL SIGNS: Temperature 36.8, pulse rate 85. Blood pressure 112/52. CHEST: No crackles present. CARDIOVASCULAR: Distant, with no rub detected. ABDOMEN: Soft, nontender with no hepatosplenomegaly. LOWER EXTREMITIES: Left BKA. UPPER EXTREMITIES: Cellulitic changes over the left dorsum. This is associated with a nickel-size ulcer. There is some purulent discharge. There is also an eschar lesion on the left index finger. LABORATORY DATA: Laboratory values pending. IMAGING: No new x-rays done. ASSESSMENT, IMPRESSION AND PLAN: 1. End-stage renal disease. 2. Left hand cellulitis. 3. Diabetes mellitus. 4. Hypotension. 5. Dialysis will be arranged for the patient every Monday, Monday and Monday. 6. Culture the cellulitic area. 7. Obtain wound care consult. 8. Resume her outpatient medications. 9. Appropriate antibiotics initiated. 10. We will continue to follow during her hospital stay. By: 0729 1327 Ha Moreno MD /nt
--- NOTE | ~2017-11-23 | HC ---
[facility] [address] CONSULTATION Name: TESFAYELAURE J Room #: 354-P ADM IN [facility].#: [id number] Admission: 11/23/17 Attend Phys: Blayne Terry MD Discharge: Date of : 44 Report #: [id number] THIS REPORT FOR: //name// CC: Blayne Aguilar DATE OF SERVICE: 11/24/2017 CHIEF COMPLAINT: Cellulitis and ulceration to the left hand. HISTORY OF PRESENT ILLNESS: This is a 72-year-old female patient whom we have seen in the past with an ulceration of the left index finger and left hand. She was previously hospitalized in September 2017. The area on the dorsal aspect of her hand was slowly improving with local care upon last evaluation. She is admitted again with increased drainage and redness over the last several days. I have been asked to see her with regard to wound care again. PAST MEDICAL HISTORY: Positive for history of pancreatitis, type 2 diabetes mellitus, end-stage renal disease, requiring dialysis. She has a history of atrial fibrillation. FAMILY HISTORY: Noncontributory. MEDICATIONS: Include ergocalciferol, midodrine, vancomycin, digoxin, melatonin, sennosides, albuterol and ipratropium, aspirin, Plavix, docusate sodium, lidocaine patch, loratadine, glyburide, sevelamer, metoclopramide, pioglitazone. She has a history of severe diabetic gastroparesis. She has had prior left below knee amputation, prior CVA with residual left-sided weakness. ALLERGIES: MORPHINE. REVIEW OF SYSTEMS: CONSTITUTIONAL: The patient denies fever, chills or weight loss. NEUROLOGICAL: The patient has some left-sided weakness. ENT: The patient denies earache, nasal drainage or sore throat. CARDIOVASCULAR: The patient denies chest pain, palpitations or diaphoresis. PULMONARY: The patient denies cough or shortness of breath. GASTROINTESTINAL: The patient denies nausea, vomiting, diarrhea or abdominal pain. ORTHOPEDIC: The patient is aware of the ulceration on her left hand, right and left index finger, prior amputation of the left lower extremity. Other systems in a 14-point review of systems are negative. PHYSICAL EXAMINATION: VITAL SIGNS: At this time include pulse 72, respiratory rate 18, blood pressure [address] [address] CONSULTATION Name: TESFAYELAURE Room #: [address] [place] [address] [place] [facility]#: [id number] Admission: 11/23/17 Attend Phys: Blayne Terry MD Discharge: Date of : 44 Report #: [id number] of 138/50, temperature is 98.2. GENERAL: This is a chronically ill-appearing female patient who appears to be in no distress. HEENT: Head is normocephalic. Nose and throat are clear. NECK: Supple. LUNGS: Clear. HEART: Regular rhythm. ABDOMEN: Soft. Bowel sounds present. EXTREMITIES: Examination of the left hand demonstrates significant ulceration overlying the fourth and/or fifth MCP region. There is likely expose the joint capsule, moderate slough and debris present and some odor and some purulent drainage. A culture has been obtained from this area. She also has a small eschar at the nail just beneath the nail bed in the paronychial region of the left index finger. LABORATORY DATA: Includes sodium 141, potassium 3.7, chloride 101, CO2 of 31, BUN 38, creatinine 6.1, albumin 3.4. White blood cell count 8.6 with the hemoglobin 11.3. CLINICAL IMPRESSION: 1. Ulceration with secondary wound infection involving the dorsal aspect of the left hand. There is some clinical concern for joint involvement and/or possible osteomyelitis. 2. Residual left-sided weakness from prior cerebrovascular accident, possibly with some left-sided neglect. 3. Diabetes mellitus. RECOMMENDATIONS: At this point in time, we will recommend topical gentamicin ointment and Xeroform gauze for now. Culture and sensitivity have been obtained. We will focus antibiotics once results have been received. We will recommend an x-ray. We will consult Dr. Smith from Hand Surgery perspective. I think this will require some debridement, although she may require amputation of a portion of the hand. It would be worthwhile checking arterial Doppler of the left upper extremity as well to verify that she has adequate blood flow for wound healing. I will recommend Betadine to the eschar in the index finger. I appreciate being asked to see her in consultation. <ELECTRONICALLY SIGNED> By: Howard Renteria MD 11/28/17 0924 1421 0041 Howard Renteria MD /nt
--- NOTE | ~2017-11-23 | O ---
[facility] [place] [address] OPERATIVE REPORT Name: LAURE CARLIN Kevin Room #: 354-P [facility] IN ..#: [id number] Admission: 11/23/17 Attend Phys: Blayne Terry MD Discharge: Date of : 43 Report #: [id number] THIS REPORT FOR: //name// CC: Blayne Aguilar DATE OF SERVICE: 11/26/2017 PREOPERATIVE DIAGNOSIS: Left small finger metacarpal osteomyelitis. POSTOPERATIVE DIAGNOSIS: Left small finger metacarpal osteomyelitis. PROCEDURE: Left small finger ray amputation. SURGEON: Sebastian Shafer MD SUPERINTENDENT CAR CONSTRUCTION: Paloma Cramer. ANESTHESIA: General. ESTIMATED BLOOD LOSS: Minimal. DRAINS: One drain was placed to the wound. COMPLICATIONS: There were no complications. DESCRIPTION OF PROCEDURE: The patient was brought to the operating room where she was placed under general anesthesia. Once under adequate general anesthesia, her left upper extremity was prepped and draped in a sterile manner. A 4 inch Esmarch was utilized as a tourniquet. A racquet-shaped incision was then made about the small finger, excising the wound, which was on the dorsum of the small finger metacarpal head. This was taken sharply directly down to the bone at the proximal phalanx and extending to the metacarpal. The metacarpal was completely exposed and a sagittal saw was used to transect this. Once complete, a 15 blade was used to sharply dissect the bone off of the soft tissue. The finger was then completely removed, completing the amputation. The wound was irrigated copiously with normal saline solution and closed over a drain with 2-0 nylon suture in a simple stitch manner. Once complete, the wound was dressed with Xeroform, 4 x 4s, and sterile soft compressive dressing was placed. The tourniquet had been let down prior to placing the dressing at approximately 10 minutes. There were no complications from the procedure. The [address] [address] OPERATIVE REPORT Name: TESFAYELAURE Room #: 354-P [facility] IN [facility]#: [id number] Admission: 11/23/17 Attend Phys: Blayne Terry MD Discharge: Date of : 43 Report #: [id number] patient tolerated the procedure well and went to the recovery room without incident. <ELECTRONICALLY SIGNED> By: Sebastian Shafer MD 11/28/17 1417 0936 0948 Sebastian Shafer MD /nt
--- NOTE | ~2017-11-23 | HC ---
[facility] [address] CONSULTATION Name: TESFAYELAURE J Room #: 354-P ADM IN M.R.#: [id number] Admission: 11/23/17 Attend Phys: Blayne Terry MD Discharge: Date of : 43 Report #: [id number] THIS REPORT FOR: //name// CC: Blayne Aguilar REASON FOR CONSULTATION: I was asked to evaluate concerning gangrene of the left fifth finger. HISTORY OF PRESENT ILLNESS: The patient is a 72-year-old with underlying history of diabetes and end-stage renal disease. She has a significant microvascular disease with complications including bilateral lower extremity amputation. She has had nonhealing wound to her left hand. This worsened and she was diagnosed with left hand and fifth finger gangrene with associated cellulitis, placed on IV antibiotic therapy. Cultures are pending. Underwent a fifth ray amputation this morning. The patient was a poor historian. She did note pain in the region. She has her AV fistula in the left arm above this. She has had nonhealing wounds to the distal aspects of the left hand for an extended period of time. REVIEW OF SYSTEMS: CONSTITUTIONAL: Denies any fever or chills or malaise. SKIN: As noted above. LYMPHATIC: Negative. HEENT: Negative. PULMONARY: Negative. CARDIOVASCULAR: As above. GASTROINTESTINAL: Negative. GENITOURINARY: On dialysis. JOINTS: As above. NEUROLOGIC: Previous stroke. No new neurologic symptoms. ENDOCRINE: Underlying diabetes. PAST MEDICAL HISTORY: End-stage renal disease, left AV fistula, recurrent pulmonary edema, peripheral vascular disease, left lower extremity BKA, stroke, ovarian cyst, diskitis, appendectomy. FAMILY HISTORY: Diabetes, kidney disease. ALLERGIES: MORPHINE. MEDICATIONS: As noted on her MAR including vancomycin. SOCIAL HISTORY: She is a nonsmoker with no significant alcohol intake. FAMILY HISTORY: Noncontributory. [facility] [address] [place] [address] CONSULTATION Name: LAURE CARLIN Kevin Room #: 354-P [facility]#: [id number] Admission: 11/23/17 Attend Phys: Blayne Terry MD Discharge: Date of : 43 Report #: [id number] PHYSICAL EXAMINATION: VITAL SIGNS: Afebrile and hemodynamically stable. GENERAL: She was alert and cooperative. She is on 2 liters of oxygen per nasal cannula, sitting up in her bed. HEENT: Unremarkable. Mouth unremarkable. NECK: Supple with no adenopathy. SKIN: Unremarkable except for what will be described on her extremity examination. CHEST: Clear. HEART: Regular without murmur, gallop or rub. Thrill over the left upper extremity AV fistula. ABDOMEN: Soft and nontender. EXTREMITIES: Left hand was wrapped from surgery. First 4 fingers were a bit dusky. Capillary refill -1. Eschar over the distal aspect of the second finger. Left BKA. NEUROLOGIC: Nonfocal other than some mild left-sided weakness. LABORATORY STUDIES: Sodium 136, potassium 5, creatinine 6.2. Hemoglobin 11, WBC 10, platelet count 120,000. Differential unremarkable. Cultures from the hand wound pending. Arterial studies of the left upper extremity, compromised flow to the hand. IMPRESSION: 1. A 72-year-old diabetic with peripheral vascular disease and steal phenomenon involving the left hand. She has undergone amputation of the fifth digit. We will need to discuss further with Nephrology regarding continued use of this arteriovenous fistula if arterial steal continues to be an issue. 2. Diabetes. 3. End-stage renal disease. 4. Previous stroke. RECOMMENDATION: We will continue vancomycin pending culture results. Duration of treatment will depend on healing following the ray amputation performed today. <ELECTRONICALLY SIGNED> By: Prateek Albert MD 11/27/17 1336 [id number] Prateek Albert MD /nt
--- NOTE | ~2017-11-23 | H ---
[facility] [place] [address] HISTORY AND PHYSICAL Name: LAURE CARLIN Room #: 354-P ADM IN .R.#: [id number] Admission: 11/23/17 Attend Phys: Blayne Terry MD Discharge: Date of : 43 Report #: [id number] THIS REPORT FOR: //name// CC: Blayne Aguilar DATE OF SERVICE: 11/23/2017 ATTENDING PHYSICIAN: Dr. Ocampo. PRIMARY CARE PHYSICIAN: Unknown. CHIEF COMPLAINT: Left hand wound. HISTORY OF PRESENT ILLNESS: The patient is a 72-year-old female, who was previously hospitalized here in September initially for atrial fibrillation with RVR and acute gallstone pancreatitis. She ended up having her gallbladder removed and went to rehab. During the outside admission, she was seen by Dr. Renteria with wound care. No debridements were done. She says she is not sure how the wounds started, but she notes that there was not an IV placed in that hand as it is the same arm as her left upper extremity fistula. She does have end-stage renal disease and receives dialysis on Monday, Monday and Fridays. According to the patient, she, around the same time, had developed a small wound at the base of her left index finger nail bed. Since she has been home from rehab, she has been receiving home health and they have been doing wound changes and in the last few days, they noticed that there was increasing redness and swelling of the left hand and some purulent drainage. She does not think she has been having any fevers or chills. She was started on Augmentin 2 days ago and has not seen any improvement. She said she has been on IV antibiotics for it in the hospital. There was also a strong odor noted from the wound. She says she has been feeling nauseated, but has felt that way since her gallbladder was removed. She states that her primary risk engineer did obtain a wound culture of this wound a few days ago while she was at dialysis and she was not told any results yet. She was initially seen at [facility] in [place] for the wound and x-ray was obtained. She was sent here as they do not have Nephrology services available. She did receive a dose of vancomycin prior to transfer. PAST MEDICAL HISTORY: Hypertension; diabetes; end-stage renal disease, on dialysis; prior CVA with some residual left-sided weakness; cardiomyopathy with an EF of 30%-35%; chronic respiratory failure due to COPD, which is oxygen dependent; atrial fibrillation; diabetic retinopathy; diabetic gastroparesis; polyneuropathy; recent gallstone pancreatitis. 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 ALLERGIES: MORPHINE causes SEVERE CONFUSION. HOME MEDICATIONS: Claritin 10 mg p.o. daily; Augmentin 875 mg b.i.d. which was started 2 days ago; ProAmatine 5 mg t.i.d. with 10 mg on dialysis days; Plavix 75 mg daily; digoxin 0.0625 mg every other day; aspirin 81 mg daily; Tylenol p.r.n.; Ativan 0.25 mg q.8 hours p.r.n.; Renvela 800 mg t.i.d. with meals; Colace 100 mg b.i.d.; senna 2 tabs at bedtime; MiraLax 17 g daily; Reglan 5 mg a.c. and at bedtime; glyburide 5 mg t.i.d.; Actos 15 mg daily; lidocaine patch to left shoulder daily; Nephrocaps 1 tab daily; Drisdol 50,000 units weekly; and melatonin 10 mg at bedtime. SOCIAL HISTORY: The patient lives with her spouse. She is able to ambulate with a walker using a prosthesis, but otherwise uses a scooter. Lately, she has been unable to use her walker because of this left hand swelling. FAMILY HISTORY: Mother had uterine cancer. Her father had heart disease with prior CABG. REVIEW OF SYSTEMS: A 12-point review of systems was reviewed with the patient, otherwise negative unless stated in the HPI. PHYSICAL EXAMINATION: GENERAL: The patient is an alert female in no acute distress. VITAL SIGNS: Temperature is 36.7, heart rate 94, respirations 24, blood pressure 117/53, oxygen 100% on 2 liters O2. HEENT: PERRLA. Sclerae nonicteric. Oral mucosa is pink and moist. NECK: Supple, no JVD noted. CARDIAC: Normal. Heart rate is irregular. No murmurs, rubs or gallops. RESPIRATORY: Breath sounds are clear bilaterally upper lobes. She is diminished in the bases. Breathing is nonlabored. ABDOMEN: Soft, nontender, nondistended with positive bowel sounds. VASCULAR: She does have a prior left below-knee amputation on the right. She has 1+ lower extremity edema, pedal pulses 2+. NEUROLOGIC: The patient is alert and oriented x 3. Speech is clear. She is answering questions appropriately and follows commands. No focal weakness noted. SKIN: She does have a golf ball sized ulceration of her dorsal aspect of the left hand located just at the base of her fourth and fifth digits. There is surrounding erythema that extends into her third, fourth and fifth digits as well as edema. The surrounding tissue is edematous, it is tender, but no significant warmth noted. No areas of fluctuance. There is a small amount of purulent drainage from the wound. Also, at the bases of her left index finger, there is a small area of eschar that does not have any significant drainage or [facility] [address] [place] [address] HISTORY AND PHYSICAL Name: TESFAYELAURE Room #: 354-P [facility] IN [facility]#: [id number] Admission: 11/23/17 Attend Phys: Blayne Terry MD Discharge: Date of : 43 Report #: [id number] surrounding erythema. LABORATORY DATA AND DIAGNOSTICS: Blood work done at [facility] showed a WBC of 10.2, hemoglobin 11.8, platelets 146. Sodium 144, potassium 3.5, BUN 29, creatinine 4.8, glucose 195. LFTs were within normal limits. X-ray of the left hand showed nonspecific soft tissue swelling. There was a possible nondisplaced comminuted fracture of the distal radius. ASSESSMENT AND PLAN: 1. Left hand wound with hand cellulitis. She was given vancomycin at [facility] prior to transfer. We will continue with vancomycin dose per pharmacy due to renal disease. We will consult Dr. Renteria with wound care. The patient does not want to take anything stronger for pain other than Tylenol. We will try to get the results from the recent wound culture obtained at her dialysis center. 2. Diabetes. Blood sugar is stable. Continue home oral hypoglycemics and add a sliding scale insulin and follow Accu-Chek. 3. End-stage renal disease. She is on hemodialysis, she will be due for dialysis in the morning. We will consult Nephrology. 4. Hypertension. Blood pressure has been stable, continue home meds and monitor. 5. Chronic respiratory failure due to chronic obstructive pulmonary disease. She is oxygen dependent. No signs of exacerbation, add breathing treatments p.r.n. 6. Chronic systolic heart failure. No signs of exacerbation or acute fluid overload. Continue fluid removal with dialysis. 7. Chronic atrial fibrillation. She is currently rate controlled. Continue digoxin and monitor on telemetry. We will continue to follow the patient closely throughout the hospitalization and make changes based on clinical status. <ELECTRONICALLY SIGNED> By: ZEFERINO Gruber 11/24/17 1752 [id number] ZEFERINO Gruber /nt
[~2017-11-23 17:47] MED LIST changes: -APAP500 PO; +CLARITIN10 MG PO; +ERGOCALCIF50000 UNIT PO; +GLUCOTROL5 MG PO; +HEPARIN SO5000 UNIT/ SUBQ; +HYDROCODON-ACE1 EAC7 PO; +LIDOPATCH1 EACH TRANSDERM; +MELATONIN5 M1 PO; +SENNA8.6 MG PO; +SIMETHICON CHEW80 M1 PO; +TYLENOL EXTRA500 MG PO
[2017-11-23 20:20] VITALS: BP 117/53
[2017-11-23 23:35] VITALS: BP 127/60
[2017-11-24] MEDS ORDERED: GLYBURIDE 2.52.5 MG PO (01:06)
[2017-11-24] MEDS ORDERED: PIOGLITAZONE15 MG (01:06)
[2017-11-24] MEDS ORDERED: AUGMENTIN 875-1 EACH PO (01:17)
[2017-11-24 03:50] VITALS: BP 112/52
[2017-11-24 07:51] LABS: HEMATOCRIT 35.5 % (37.0-47.0); HEMOGLOBIN 11.3 gm/dL (12.0-15.0); MCH 30.9 pg (26.0-34.0); MCHC 31.8 g/dL (28.0-37.0); MCV 97.1 fL (80.0-100.0); RBC 3.66 mil/uL (4.20-5.00); RDW 15.3 % (10.5-14.5); WBC 8.6 thou/uL (4.0-11.0)
[2017-11-24 08:09] LABS: CALCIUM 8.9 mg/dL (8.5-10.1); CREATININE 6.1 mg/dL (0.6-1.0); POTASSIUM 3.7 mmol/L (3.5-5.1)
[2017-11-24 08:22] VITALS: BP 138/58
[2017-11-24 15:07] VITALS: BP 138/58
[2017-11-24 19:25] VITALS: BP 118/48
[2017-11-25 00:07] VITALS: BP 123/68
[2017-11-25 03:29] VITALS: BP 105/38
[2017-11-25 06:00] LABS: HEMATOCRIT 38.2 % (37.0-47.0); HEMOGLOBIN 12.2 gm/dL (12.0-15.0); MCHC 31.9 g/dL (28.0-37.0); MCV 97.1 fL (80.0-100.0); RBC 3.94 mil/uL (4.20-5.00); RDW 15.5 % (10.5-14.5); WBC 9.3 thou/uL (4.0-11.0)
[2017-11-25 06:18] LABS: CALCIUM 8.9 mg/dL (8.5-10.1); POTASSIUM 4.1 mmol/L (3.5-5.1)
[2017-11-25 06:23] LABS: CREATININE 4.4 mg/dL (0.6-1.0)
[2017-11-25 07:44] VITALS: BP 105/31
[2017-11-25 15:35] VITALS: BP 98/39
[2017-11-25 20:10] VITALS: BP 107/50
[2017-11-26] VITALS (10 sets, daily range): BP systolic 88–126; BP diastolic 21–70
[2017-11-26 10:20] LABS: ABSOLUTE NEUTROPHILS 7.8 thou/uL (1.4-8.2); BASOPHILS 0.8 % (0.0-2.0); EOSINOPHILS 2.8 % (0.0-3.0); HEMOGLOBIN 11.2 gm/dL (12.0-15.0); LYMPHOCYTES 11.1 % (24.0-44.0); MCH 30.8 pg (26.0-34.0); MCHC 32.1 g/dL (28.0-37.0); MONOCYTES 8.1 % (1.0-8.0); PLATELET COUNT 120 thou/uL (150-400); POLYS 77.2 % (36.0-66.0); RBC 3.65 mil/uL (4.20-5.00); RDW 15.3 % (10.5-14.5); WBC 10.1 thou/uL (4.0-11.0)
[2017-11-26 10:30] LABS: CALCIUM 8.4 mg/dL (8.5-10.1)
[2017-11-26 10:32] LABS: CREATININE 6.2 mg/dL (0.6-1.0)
[2017-11-27 00:05] VITALS: BP 105/63
[2017-11-27 03:40] VITALS: BP 102/36
[2017-11-27 04:26] LABS: CALCIUM 8.7 mg/dL (8.5-10.1); POTASSIUM 5.3 mmol/L (3.5-5.1)
[2017-11-27 04:37] LABS: HEMATOCRIT 36.4 % (37.0-47.0); HEMOGLOBIN 11.6 gm/dL (12.0-15.0); MCH 30.7 pg (26.0-34.0); MCHC 31.9 g/dL (28.0-37.0); MCV 96.3 fL (80.0-100.0); RBC 3.78 mil/uL (4.20-5.00); RDW 15.6 % (10.5-14.5); WBC 9.7 thou/uL (4.0-11.0)
[2017-11-27 11:57] VITALS: BP 117/43
[2017-11-27 15:41] VITALS: BP 118/55
[2017-11-27 19:20] VITALS: BP 94/38
[2017-11-28 03:40] VITALS: BP 109/60
[2017-11-28 07:52] VITALS: BP 103/67
[2017-11-28 16:34] VITALS: BP 106/42
[2017-11-28 19:28] VITALS: BP 87/39
[2017-11-28 19:35] VITALS: BP 96/46
[2017-11-29 04:06] VITALS: BP 121/58
[2017-11-29 07:44] VITALS: BP 130/74
[2017-11-29 19:10] VITALS: BP 109/43
[2017-11-30] VITALS (9 sets, daily range): BP systolic 99–149; BP diastolic 31–57
[2017-11-30 09:32] LABS: APTT 31.5 Seconds (24.5-32.8); PROTIME 10.6 Seconds (9.3-11.4)
[2017-11-30] MEDS ORDERED: VAN500AD IVPB (12:48)
[2017-11-30] MEDS ORDERED: CEFTRIAXON1 GM/50 M1 IVPB (12:48)
== END 2017-11-30 19:05 | DRG 853 ==
LOC: 3W 17:47
PROVIDERS: Hospitalist; Nurse Practitioner Acute Care; Orthopaedic Surgery Foot and Ankle Surgery; Radiology Diagnostic Radiology
PROC: 5A1D70Z Performance of Urinary Filtration, Intermittent, Less than 6 Hours Per Day (ICD-10-PCS; principal; 2017-11-24)
PROC: 0X6W0Z0 Detachment at Left Little Finger, Complete, Open Approach (ICD-10-PCS; 2017-11-26)
PROC: 5A1D70Z Performance of Urinary Filtration, Intermittent, Less than 6 Hours Per Day (ICD-10-PCS; 2017-11-27)
PROC: 5A1D70Z Performance of Urinary Filtration, Intermittent, Less than 6 Hours Per Day (ICD-10-PCS; 2017-11-29)
PROC: B244YZZ Ultrasonography of Right Heart using Other Contrast (ICD-10-PCS; 2017-11-30)
PROC: B2141ZZ Fluoroscopy of Right Heart using Low Osmolar Contrast (ICD-10-PCS; 2017-11-30)
PROC: B3101ZZ Fluoroscopy of Thoracic Aorta using Low Osmolar Contrast (ICD-10-PCS; 2017-11-30)
PROC: 02H633Z Insertion of Infusion Device into Right Atrium, Percutaneous Approach (ICD-10-PCS; 2017-11-30)
PROC: B31J1ZZ Fluoroscopy of Left Upper Extremity Arteries using Low Osmolar Contrast (ICD-10-PCS; 2017-11-30)
DX: A41.9 Sepsis, unspecified organism (principal); N18.6 End stage renal disease; L03.114 Cellulitis of left upper limb; I42.9 Cardiomyopathy, unspecified; J96.10 Chronic respiratory failure, unspecified whether with hypoxia or hypercapnia; M86.8X8 Other osteomyelitis, other site; I50.22 Chronic systolic (congestive) heart failure; G45.8 Other transient cerebral ischemic attacks and related syndromes; I69.354 Hemiplegia and hemiparesis following cerebral infarction affecting left non-dominant side; I13.2 Hypertensive heart and chronic kidney disease with heart failure and with stage 5 chronic kidney disease, or end stage renal disease; E11.51 Type 2 diabetes mellitus with diabetic peripheral angiopathy without gangrene; I95.9 Hypotension, unspecified; E11.319 Type 2 diabetes mellitus with unspecified diabetic retinopathy without macular edema; E11.42 Type 2 diabetes mellitus with diabetic polyneuropathy; J44.9 Chronic obstructive pulmonary disease, unspecified; I48.2 Chronic atrial fibrillation; E11.69 Type 2 diabetes mellitus with other specified complication; K21.9 Gastro-esophageal reflux disease without esophagitis; G89.29 Other chronic pain; M54.9 Dorsalgia, unspecified; G47.33 Obstructive sleep apnea (adult) (pediatric); E11.22 Type 2 diabetes mellitus with diabetic chronic kidney disease; E11.628 Type 2 diabetes mellitus with other skin complications; K59.00 Constipation, unspecified; E11.43 Type 2 diabetes mellitus with diabetic autonomic (poly)neuropathy; K31.84 Gastroparesis; F41.9 Anxiety disorder, unspecified; M19.90 Unspecified osteoarthritis, unspecified site; Z89.512 Acquired absence of left leg below knee; Z90.49 Acquired absence of other specified parts of digestive tract; Z88.6 Allergy status to analgesic agent; Z82.49 Family history of ischemic heart disease and other diseases of the circulatory system; Z84.1 Family history of disorders of kidney and ureter; Z99.81 Dependence on supplemental oxygen; Z98.49 Cataract extraction status, unspecified eye; Z79.899 Other long term (current) drug therapy; Z79.82 Long term (current) use of aspirin
CPT/HCPCS: 10779; 10879; 32100; 50101; 50386; 50825; 53010; 56527; 57091; 62110; 62900; 70005

== ENCOUNTER → 2017-12-05 | Outpatient (CLI) | payer OTHER, BC ==
[~2017-12-05] VITALS: Ht 157.5 cm; Wt 89.0 kg
[~2017-12-05] MED LIST changes: +AUGMENTIN 875-1 EACH PO; +CEFTRIAXON1 GM/50 M1 IVPB; +VAN500AD IVPB
[2017-12-05 09:55] VITALS: BP 105/36
[2017-12-05 10:02] LABS: HEMATOCRIT 35.5 % (37.0-47.0); HEMOGLOBIN 11.4 gm/dL (12.0-15.0); MCHC 32.3 g/dL (28.0-37.0); RBC 3.69 mil/uL (4.20-5.00); RDW 16.2 % (10.5-14.5); WBC 10.2 thou/uL (4.0-11.0)
[2017-12-05 10:11] LABS: CALCIUM 9.4 mg/dL (8.5-10.1); POTASSIUM 5.1 mmol/L (3.5-5.1)
[2017-12-05 10:16] LABS: APTT 25.5 Seconds (24.5-32.8); PROTIME 10.3 Seconds (9.3-11.4)
== END | disposition home or self-care (01) ==
LOC: SPEC 09:10
PROVIDERS: Radiology Vascular & Interventional Radiology
DX: Z45.2 Encounter for adjustment and management of vascular access device (principal); M86.9 Osteomyelitis, unspecified; I13.2 Hypertensive heart and chronic kidney disease with heart failure and with stage 5 chronic kidney disease, or end stage renal disease; I50.9 Heart failure, unspecified; N18.6 End stage renal disease; I73.89 Other specified peripheral vascular diseases; E11.22 Type 2 diabetes mellitus with diabetic chronic kidney disease; I48.91 Unspecified atrial fibrillation; E11.319 Type 2 diabetes mellitus with unspecified diabetic retinopathy without macular edema; G62.9 Polyneuropathy, unspecified; K21.9 Gastro-esophageal reflux disease without esophagitis; I42.9 Cardiomyopathy, unspecified; G47.33 Obstructive sleep apnea (adult) (pediatric); F41.9 Anxiety disorder, unspecified; G89.29 Other chronic pain; M19.90 Unspecified osteoarthritis, unspecified site; Z90.49 Acquired absence of other specified parts of digestive tract; Z86.73 Personal history of transient ischemic attack (TIA), and cerebral infarction without residual deficits; Z98.890 Other specified postprocedural states; Z79.899 Other long term (current) drug therapy; Z88.8 Allergy status to other drugs, medicaments and biological substances; Z79.82 Long term (current) use of aspirin